=== PATIENT | male | born 1990 | race Caucasian/White ===

== ENCOUNTER 2018-11-14 16:04 | Emergency (ER) | payer OTHER ==
[~2018-11-14] VITALS: Ht 177.8 cm; Wt 84.6 kg
[2018-11-14 19:40] VITALS: BP 118/72
[2018-11-14] MEDS ORDERED: ACETAMINOPHEN 325 MG TAB PO ONE (20:15)
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
--- NOTE | 2018-11-15 08:01 | REP ---
RIGHT SCAPULA, TWO VIEWS: Two views of the right scapula are performed. I see no evidence of acute fracture, dislocation or intrinsic bone disease. IMPRESSION: No evidence of scapular fracture. Electronically Signed by Obed Cedillo MD 11/15/2018 05:04 P
== END 2018-11-14 22:15 | disposition home or self-care (01) ==
LOC: M ED 16:04
DX: M25.511 Pain in right shoulder (principal); M54.6 Pain in thoracic spine